=== PATIENT | female | born 1955 | race Caucasian/White ===

== ENCOUNTER → 2016-10-28 | Outpatient (CLI) | payer BC ==
[~2016-10-28] MED LIST: BUPR-79; DPKEC250; DPKEC500; QUETIAPINE; SEROQUEL
[2016-10-28 10:52] LABS: HEMATOCRIT 44.8 % (37-47); MEAN CELL VOLUME 96.6 fL (80-100); MEAN CORPUSCULAR HEMOGLOBIN 30.2 pg (25-34); MEAN CORPUSCULAR HGB CONC 31.3 g/dl (32-36); PLATELET COUNT 212 K/uL (130-400); RED BLOOD COUNT 4.64 M/uL (4.2-5.4); WHITE BLOOD COUNT 6.31 K/uL (4.8-10.8)
[2016-10-28 11:02] LABS: BLOOD UREA NITROGEN 27 mg/dl (7-18); BUN/CREATININE RATIO 35.8 (10-20); CARBON DIOXIDE 31 mmol/L (21-32); CHLORIDE 106 mmol/L (98-107); CREATININE 0.74 mg/dl (0.60-1.20); GLUCOSE 81 mg/dl (70-99); POTASSIUM 4.1 mmol/L (3.5-5.1); SODIUM 144 mmol/L (136-145)
[2016-10-28 11:20] LABS: CALCIUM 8.9 mg/dl (8.5-10.1)
== END | disposition home or self-care (01) ==
LOC: C.LABWYN 09:55
PROVIDERS: ATTEND Nurse Practitioner Adult Health
DX: R53.83 Other fatigue (principal)

== ENCOUNTER → 2017-06-09 | Outpatient (CLI) | payer BC ==
[2017-06-09 12:38] LABS: MEAN CELL VOLUME 95.7 fL (80-100); MEAN CORPUSCULAR HEMOGLOBIN 30.9 pg (25-34); MEAN CORPUSCULAR HGB CONC 32.3 g/dl (32-36); MEAN PLATELET VOLUME 10.7 fL (7.4-10.4); PLATELET COUNT 223 K/uL (130-400); RED BLOOD COUNT 4.18 M/uL (4.2-5.4); WHITE BLOOD COUNT 7.27 K/uL (4.8-10.8)
[2017-06-09 13:00] LABS: BLOOD UREA NITROGEN 29 mg/dl (7-18); BUN/CREATININE RATIO 43.9 (10-20); CALCIUM 8.4 mg/dl (8.5-10.1); CARBON DIOXIDE 25 mmol/L (21-32); CHLORIDE 108 mmol/L (98-107); CREATININE 0.67 mg/dl (0.60-1.20); GLUCOSE 80 mg/dl (70-99); SODIUM 142 mmol/L (136-145)
== END | disposition home or self-care (01) ==
LOC: C.LABWYN 09:23
PROVIDERS: ATTEND Nurse Practitioner Adult Health
DX: G31.9 Degenerative disease of nervous system, unspecified (principal)

== ENCOUNTER 2017-10-09 13:17 | Emergency (ER) | payer BC, OTHER ==
[2017-10-09 13:17] VITALS: TEMP 36.8
[2017-10-09] MEDS ORDERED: SODIUM CHLORIDE 0.9% 1000ML 1,000 ML IV STA (14:24)
--- NOTE | 2017-10-09 14:27 | EMERGENCY ROOM VISIT NOTE ---
History Report prepared by Bari: Yvette York Under the Supervision of: Dr. Adam Peña M.D. 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 As per EMS, she had diaphoresis upon arrival. She is accompanied by her who reports that when she was at the prison, her oxygen level was in the 80's, her heart rate was around 88, and she had a fever. He states she received some Tylenol which alleviated her fever. Her notes that she has not been able to walk for the past 2.5 years. He does not think she is very cognizant but does note that she has a history of seizures. She can answer yes and no questions. When asked if she has any pain, she states "no." HPI limited secondary to the patient's baseline condition. 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 Review of Systems HPI and ROS limited secondary to the patient's baseline condition. See HPI for pertinent positives & negatives. A total of 10 systems reviewed and were otherwise negative. Past Medical & Surgical Old medical records were reviewed. Nurse's notes were reviewed and I agree with. Family History No pertinent family history Social History Smoking Status: Unknown if Ever Smoked Smokeless Tobacco Use: Unknown Marital Status: Housing Status: prison Current/Historical Medications Scheduled Bupropion (Wellbutrin Sr), 100 MG PO BID Divalproex Sodium (Divalproex Sodium), 375 MG PO QAM Divalproex Sodium (Divalproex Sodium), 875 MG PO QPM Docusate Sodium (Colace), 1 CAP PO DAILY Enteral Nutrition Formula (Ensure), 1 DOSE PO TIDM Quetiapine Fumarate (Seroquel), 100 MG PO DAILY Quetiapine Fumarate (Seroquel), 400 MG PO QPM Rivastigmine Tartrate (Rivastigmine Tartrate), 6 MG PO BID Scheduled PRN Acetaminophen (Tylenol), 650 MG PO Q4 PRN for Fever Acetaminophen (Tylenol), 650 MG [place] Q4 PRN for Pain or Fever Loperamide Hcl (Imodium), 2 MG PO QID PRN for Diarrhea Ondansetron Hcl (Zofran), 4 MG PO TID PRN for Nausea Allergies Coded Allergies: No Known Allergies (Unverified Allergy, Unknown, 06/07/03) Uncoded Allergies: NKA (Allergy, Unknown, 08/11/02) Physical Exam Vital Signs Date Time Temp Pulse Resp B/P (MAP) Pulse Ox O2 Delivery O2 Flow Rate FiO2 10/09/17 18:35 78 14 162/70 100 10/09/17 17:25 75 10/09/17 16:32 73 18 98 10/09/17 16:31 120/78 10/09/17 16:27 71 14 99 10/09/17 16:22 70 12 96 10/09/17 16:17 69 15 97 10/09/17 16:12 71 16 96 10/09/17 16:07 70 19 10/09/17 16:04 135/105 10/09/17 16:02 71 23 10/09/17 16:00 132/83 10/09/17 15:57 66 13 94 10/09/17 15:52 69 12 94 10/09/17 15:47 69 15 93 10/09/17 15:42 68 14 94 10/09/17 15:37 66 14 95 10/09/17 15:32 66 14 97 10/09/17 15:30 112/62 10/09/17 15:27 65 14 98 10/09/17 15:22 66 15 99 10/09/17 15:17 67 14 99 10/09/17 15:12 68 14 98 10/09/17 15:07 71 14 99 10/09/17 15:02 73 12 97 10/09/17 15:00 113/72 10/09/17 14:57 76 21 93 10/09/17 14:53 76 20 110/69 98 Room Air 10/09/17 14:52 77 17 92 10/09/17 14:47 79 17 95 10/09/17 14:42 78 19 95 10/09/17 14:37 81 16 96 10/09/17 14:35 110/69 10/09/17 14:32 83 20 92 10/09/17 14:30 102/70 10/09/17 14:27 78 15 94 10/09/17 14:22 82 15 94 10/09/17 14:17 87 21 97 10/09/17 14:12 84 14 93 10/09/17 14:07 80 16 92 10/09/17 14:02 81 18 92 10/09/17 14:00 94/58 10/09/17 13:57 84 17 93 10/09/17 13:52 85 15 93 10/09/17 13:47 87 15 93 10/09/17 13:42 90 24 93 10/09/17 13:37 91 19 93 10/09/17 13:32 91 15 91 10/09/17 13:31 99/58 10/09/17 13:27 90 14 91 10/09/17 13:23 90 10/09/17 13:22 90 19 119/74 91 10/09/17 13:17 36.8 88 16 119/74 93 Room Air Physical Exam General: Chronically-ill appearing older female in no acute distress. Sleeping but opens her eyes and says "yes" or "no." HEENT: Normal cephalic atraumatic. Pupils are equal round and reactive to light. Extraocular movements are intact. Oropharynx is pink with moist mucous membranes. No swelling of the mouth lips or tongue. Neck: Supple with a midline trachea. No meningeal signs or stiffness, no JVD or bruits. No Stridor. Chest: Clear to auscultation bilaterally. No wheezes or rhonchi. No increased work of breathing. Heart: regular rate and rhythm. Abdomen: Soft nontender, nondistended without rebound guarding or rigidity. Extremities: No cyanosis clubbing or edema. No calf tenderness or assymetry Spine/Back. Non tender to palpation. No CVA tenderness Skin: Good turgor without rashes. Neurologic exam: Baseline diffuse weakness, opens her eyes. Medical Decision & Procedures ER Provider Diagnostic Interpretation: Radiology results as stated below per my review and radiologist interpretation: CHEST ONE VIEW PORTABLE HISTORY: 62 years-old Female CHEST PAIN acute atypical chest pain COMPARISON: None available TECHNIQUE: Portable AP view of the chest FINDINGS: 2.8 x 2.2 cm somewhat rectangle shaped opacity projects over the right lung base with linear adjacent pleural parenchymal scarring. No pneumothorax, pleural effusion or overt pulmonary edema. Cardiac mediastinal and hilar silhouettes are within normal limits. Patient is slightly rotated to the right. Mild degenerative changes about the shoulders and spine. IMPRESSION: 1. No acute process. 2. 2.8 cm opacity of the right lung base suggests possible pleural plaque or pulmonary nodule with adjacent pleural-parenchymal scarring. Correlate with prior imaging. The above report was generated using voice recognition software. It may contain grammatical, syntax or spelling errors. Electronically signed by: Juan Pablo Hood M.D. 10/09/2017 2:43 PM Dictated Date/Time: 10/09/2017 2:41 PM Laboratory Results 10/09/17 14:40 Red Blood Count 4.34, Mean Corpuscular Volume 94.7, Mean Corpuscular Hemoglobin 32.0, Mean Corpuscular Hemoglobin Concent 33.8, Mean Platelet Volume 10.2, Neutrophils (%) (Auto) 52.5, Lymphocytes (%) (Auto) 28.6, Monocytes (%) (Auto) 13.8, Eosinophils (%) (Auto) 4.2, Basophils (%) (Auto) 0.6, Neutrophils # (Auto ) 3.27, Lymphocytes # (Auto) 1.78, Monocytes # (Auto) 0.86, Eosinophils # (Auto ) 0.26, Basophils # (Auto) 0.04 10/09/17 14:40 Test 10/09/17 14:40 10/09/17 14:49 10/09/17 16:07 White Blood Count 6.23 K/uL (4.8-10.8) Red Blood Count 4.34 M/uL (4.2-5.4) Hemoglobin 13.9 g/dL (12.0-16.0) Hematocrit 41.1 % (37-47) Mean Corpuscular Volume 94.7 fL (80-100) Mean Corpuscular Hemoglobin 32.0 pg (25-34) Mean Corpuscular Hemoglobin Concent 33.8 g/dl (32-36) Platelet Count 221 K/uL (130-400) Mean Platelet Volume 10.2 fL (7.4-10.4) Neutrophils (%) (Auto) 52.5 % Lymphocytes (%) (Auto) 28.6 % Monocytes (%) (Auto) 13.8 % Eosinophils (%) (Auto) 4.2 % Basophils (%) (Auto) 0.6 % Neutrophils # (Auto) 3.27 K/uL (1.4-6.5) Lymphocytes # (Auto) 1.78 K/uL (1.2-3.4) Monocytes # (Auto) 0.86 K/uL (0.11-0.59) Eosinophils # (Auto) 0.26 K/uL (0-0.5) Basophils # (Auto) 0.04 K/uL (0-0.2) RDW Standard Deviation 47.1 fL (36.4-46.3) RDW Coefficient of Variation 13.5 % (11.5-14.5) Immature Granulocyte % (Auto) 0.3 % Immature Granulocyte # (Auto) 0.02 K/uL (0.00-0.02) Anion Gap 5.0 mmol/L (3-11) Estimated GFR () 93.6 Estimated GFR (Non- 80.8 BUN/Creatinine Ratio 22.1 (10-20) Calcium Level 8.9 mg/dl (8.5-10.1) Total Bilirubin 0.3 mg/dl (0.2-1) Direct Bilirubin < 0.1 mg/dl (0-0.2) Aspartate Amino Transf (AST/SGOT) 16 U/L (15-37) Alanine Aminotransferase (ALT/SGPT) 18 U/L (12-78) Alkaline Phosphatase 88 U/L (45-117) Total Protein 6.8 gm/dl (6.4-8.2) Albumin 3.2 gm/dl (3.4-5.0) Lipase 229 U/L (73-393) Valproic Acid (Depakene) Level 93 mcg/ml (50-100) Bedside Lactic Acid Venous 1.09 mmol/L (0.90-1.70) Urine Color YELLOW Urine Appearance CLEAR (CLEAR) Urine pH 6.5 (4.5-7.5) Urine Specific [place] 1.007 (1.000-1.030) Urine Protein NEG (NEG) Urine Glucose (UA) NEG (NEG) Urine Ketones NEG (NEG) Urine Occult Blood TRACE (NEG) Urine Nitrite NEG (NEG) Urine Bilirubin NEG (NEG) Urine Urobilinogen NEG (NEG) Urine Leukocyte Esterase SMALL (NEG) Urine WBC (Auto) 5-10 /hpf (0-5) Urine RBC (Auto) 0-4 /hpf (0-4) Urine Hyaline Casts (Auto) 1-5 /lpf (0-5) Urine Epithelial Cells (Auto) >30 /lpf (0-5) Urine Bacteria (Auto) NEG (NEG) Urine Renal Epithelial Cells 5-10 /lpf (0-5) Laboratory studies as stated above per my review. Medications Administered Medications (Trade) Dose Ordered Sig/Natalie Route Start Time Stop Time Status Last Admin Dose Admin Sodium Chloride 1,000 ml @ 999 mls/hr Q1H1M STAT IV 10/09/17 14:24 10/09/17 15:24 DC 10/09/17 14:24 999 MLS/HR Lorazepam (Ativan 1MG Home Pack) 1 homepack UD ONCE PO 10/09/17 17:00 10/09/17 17:01 DC 10/09/17 17:00 1 HOMEPACK ED Course 1405: Past medical records reviewed. The patient was evaluated in room C8, and a complete history and physical examination were performed. 1424: Sodium Chloride 1000 ml @ 999 mls/hr IV 1454: I checked on the patient at this time. She is much more awake and her IV has been established. 1537: I checked on the patient at this time. She appears better and comfortable. 1628: I checked on the patient at this time. She is doing well and her wants to take her home. 1700: Lorazepam 1 homepack PO 1755: Upon reevaluation, the patient is resting. I discussed the results and treatment plan with her and her . They verbalized agreement of the treatment plan. The patient was discharged home. Medical Decision Differential diagnosis: Etiologies such as sepsis, dehydrations, electrolyte or metabolic abnormality, UTI, as well as others were entertained. This patient comes in as described above. 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 She may have gotten shaky earlier or possibly had a fever or altered mental status her is at the bedside and feels she is at her normal status. He basically wants her comfortable. He was agreeable to doing some baseline labs and x-ray and urine. She was gently hydrated in the ER and was observed. She is no white count or fever to suggest infection here. Chest x-ray does not suggest a pneumonia or pneumothorax. She has no white count or fever. She seems to be back at her normal baseline. She has no significant electrolyte or metabolic abnormalities. Her initial UA does not suggest a UTI. Her strongly desires to take her back to the prison and at this point is mostly interested in keeping her comfortable. I think this is reasonable. She should follow-up with her doctor on Thursday and return to ER over the weekend if: worsening of symptoms, not acting like self, fever or chills, any new problems or concerns. They are happy to plan and she was discharged to home. Medication Reconcilliation Current Medication List: was personally reviewed by me Blood Pressure Screening Patient's blood pressure: Normal blood pressure Blood pressure disposition: Did not require urgent referral Impression Primary Impression: Weakness Scribe Attestation The scribe's documentation has been prepared under my direction and personally reviewed by me in its entirety. I confirm that the note above accurately reflects all work, treatment, procedures, and medical decision making performed by me. Departure Information Dispostion Home / Self-Care [facility] Forms HOME CARE DOCUMENTATION FORM, IMPORTANT VISIT INFORMATION, WORK / SCHOOL INSTRUCTIONS Patient Instructions My [facility] Additional Instructions Rest. Return if: Fever, not acting like self, respiratory problems, any new problems or concerns Up with the doctor on Thursday for recheck For anxiety, may use Ativan 0.5 mg every 12 hours if needed Ativan may make you drowsy and be careful after taking
--- NOTE | 2017-10-09 14:45 | DIAGNOSTIC IMAGING REPORT ---
CHEST ONE VIEW PORTABLE HISTORY: 62 years-old Female CHEST PAIN acute atypical chest pain COMPARISON: None available TECHNIQUE: Portable AP view of the chest FINDINGS: 2.8 x 2.2 cm somewhat rectangle shaped opacity projects over the right lung base with linear adjacent pleural parenchymal scarring. No pneumothorax, pleural effusion or overt pulmonary edema. Cardiac mediastinal and hilar silhouettes are within normal limits. Patient is slightly rotated to the right. Mild degenerative changes about the shoulders and spine. IMPRESSION: 1. No acute process. 2. 2.8 cm opacity of the right lung base suggests possible pleural plaque or pulmonary nodule with adjacent pleural-parenchymal scarring. Correlate with prior imaging. The above report was generated using voice recognition software. It may contain grammatical, syntax or spelling errors. Electronically signed by: Juan Pablo Hood M.D. 10/09/2017 2:43 PM Dictated Date/Time: 10/09/2017 2:41 PM
[2017-10-09 15:09] LABS: BASO % 0.6 %; BASO ABS # 0.04 K/uL (0-0.2); EOS % 4.2 %; EOS ABS # 0.26 K/uL (0-0.5); HEMATOCRIT 41.1 % (37-47); HEMOGLOBIN 13.9 g/dL (12.0-16.0); IG# 0.02 K/uL (0.00-0.02); LYMPH % 28.6 %; LYMPH ABS # 1.78 K/uL (1.2-3.4); MEAN CELL VOLUME 94.7 fL (80-100); MEAN CORPUSCULAR HGB CONC 33.8 g/dl (32-36); MEAN PLATELET VOLUME 10.2 fL (7.4-10.4); MONO % 13.8 %; MONO ABS # 0.86 K/uL (0.11-0.59); NEUT % 52.5 %; NEUT ABS # 3.27 K/uL (1.4-6.5); PLATELET COUNT 221 K/uL (130-400); RED CELL DISTRIBUTION WIDTH CV 13.5 % (11.5-14.5); RED CELL DISTRIBUTION WIDTH SD 47.1 fL (36.4-46.3); WHITE BLOOD COUNT 6.23 K/uL (4.8-10.8)
[2017-10-09 15:28] LABS: ALBUMIN 3.2 gm/dl (3.4-5.0); ALT/SGPT 18 U/L (12-78); BLOOD UREA NITROGEN 17 mg/dl (7-18); CALCIUM 8.9 mg/dl (8.5-10.1); CARBON DIOXIDE 29 mmol/L (21-32); CREATININE 0.79 mg/dl (0.60-1.20); GLUCOSE 98 mg/dl (70-99); LIPASE 229 U/L (73-393); POTASSIUM 4.2 mmol/L (3.5-5.1); SODIUM 139 mmol/L (136-145)
[2017-10-09 15:31] LABS: ALKALINE PHOSPHATASE 88 U/L (45-117); AST/SGOT 16 U/L (15-37); TOTAL PROTEIN 6.8 gm/dl (6.4-8.2)
[2017-10-09] MEDS ORDERED: ATIVAN 1MG HOMEPACK PO ONE (17:00)
[2017-10-09] MEDS ORDERED: QUET400T PO (17:48)
[2017-10-09] MEDS ORDERED: RIVA6CAP4 PO (17:48)
[2017-10-09] MEDS ORDERED: QUET1TAB34 PO (17:48)
[2017-10-09] MEDS ORDERED: IMD/2 PO (17:48)
[2017-10-09] MEDS ORDERED: DIVA1CAP5 PO ×2 (17:48)
[2017-10-09] MEDS ORDERED: NUTR-706 PO (17:48)
[2017-10-09] MEDS ORDERED: ACET650S10 PR (17:48)
[2017-10-09] MEDS ORDERED: ACET-1311 PO (17:48)
[2017-10-09] MEDS ORDERED: BUPR100T8 PO (17:48)
[2017-10-09] MEDS ORDERED: ONDA4TAB46 PO (17:48)
[2017-10-09] MEDS ORDERED: DOCU-94 PO (17:48)
[2017-10-09 18:35] VITALS: BP 162/70; PULSE 78; O2SAT 100
--- NOTE | 2017-10-12 18:26 | Pharmacy Progress Note ---
ED Pharmacist Culture FollowUp Date of Service: Oct 12, 2017. Called [facility] [place] regarding urine culture with Enterobacter aerogenes, spoke scout [place]aga. Maria Luz requested that antibiotics be prescribed per [facility] ED discretion and sent to [facility] which is where the [facility] residents get their prescriptions filled. She also requested that culture results be faxed to [facility] at , read back number. Spoke w Dr. Peña who authorized prescription for cefdinir 300 mg po BID x7 days, 0 refills. He also requested that [facility] notify the patient's of intent to treat for presumed UTI. Called [facility] and spoke scout [place]. Provided verbal prescription per above. Vashti confirmed that they fill prescriptions for [place]. Faxed urine culture result to [facility] along with the following information: * Cefdinir 300 mg po BID x7 days called to [facility] [phone] * Please inform patient's that she has been prescribed an antibiotic for presumed urinary tract infection
== END 2017-10-09 18:37 | disposition home or self-care (01) ==
LOC: EDBD 13:17 → C.EDC 13:18
DX: R53.1 Weakness (principal); Z79.899 Other long term (current) drug therapy; Z66 Do not resuscitate